=== PATIENT | male | born 1955 | race Caucasian/White ===

== ENCOUNTER 2021-04-03 00:09 | Emergency (ER) | payer OTHER ==
[2021-04-03 00:19] VITALS: BP 173/83; PULSE 60; TEMP 98; BMI 25.7
== END 2021-04-03 00:29 | disposition home or self-care (01) ==
LOC: FER 00:09
DX: R09.89 Other specified symptoms and signs involving the circulatory and respiratory systems (principal)
CPT/HCPCS: 99281-25